=== PATIENT | male | born 1990 | race Caucasian/White ===

== ENCOUNTER 2020-11-28 02:43 | Emergency (ER) | payer OTHER | END 2020-11-28 03:55 | disposition home or self-care (01) | LOC: ER1 02:43 | DX: S31.119A Laceration without foreign body of abdominal wall, unspecified quadrant without penetration into peritoneal cavity, initial encounter (principal); W26.0XXA Contact with knife, initial encounter; Z23 Encounter for immunization | CPT/HCPCS: 12002; 90471; 90714; 99282 ==